=== PATIENT | male | born 1990 | race African-American/Black ===

== ENCOUNTER 2021-12-05 08:17 | Emergency (ER) | payer BC ==
[2021-12-05 08:26] VITALS: BP 142/59; PULSE 103; TEMP 98.1; BMI 23.5
[2021-12-05] MEDS ORDERED: ALBUTEROL SO4 2.5/IPRATROPIUM 0.5 INH SOL 3 ML VIAL.NEB. NEB ONE (09:00)
[2021-12-05] MEDS ORDERED: predniSONE 20 MG TABLET (UD) PO ONE (09:00)
== END 2021-12-05 10:03 | disposition home or self-care (01) ==
LOC: JER 08:17
PROC: 3E0F7GC Introduction of Other Therapeutic Substance into Respiratory Tract, Via Natural or Artificial Opening (ICD-10-PCS; principal; 2021-12-05)
DX: J45.901 Unspecified asthma with (acute) exacerbation (principal); R09.81 Nasal congestion
CPT/HCPCS: 71046-TC-FY; 99283-25

== ENCOUNTER 2023-06-14 01:23 | Emergency (ER) | payer SELFPAY ==
[2023-06-14 01:34] VITALS: BP 130/72; PULSE 70; RESP 14; TEMP 98.4; BMI 27.3
== END 2023-06-14 01:50 | disposition left against medical advice (07) ==
LOC: FER 01:23
DX: F19.10 Other psychoactive substance abuse, uncomplicated (principal)
CPT/HCPCS: 99281-25